=== PATIENT | female | born 1990 | race Caucasian/White ===

== ENCOUNTER 2020-01-31 10:20 | Emergency (ER) | payer MEDICAID, OTHER ==
[~2020-01-31] VITALS: Ht 162.6 cm; Wt 50.5 kg
[2020-01-31] MEDS ORDERED: IBUPROFEN 600 MG TABLET PO ONE (11:00)
[2020-01-31] MEDS ORDERED: ACETAMINOPHEN 500 MG TABLET PO ONE (11:00)
[2020-01-31 11:14] LABS: COVID AG,FIA SOURCE NASOPHARYNGEAL
[2020-01-31 11:39] LABS: INFLUENZA TYPE A NEGATIVE FOR TYPE A (NEGATIVE); INFLUENZA TYPE B NEGATIVE FOR TYPE B (NEGATIVE)
[2020-01-31 12:14] VITALS: BP 96/61
== END 2020-01-31 12:34 | disposition home or self-care (01) ==
LOC: EMS 10:27
DX: R51.9 Headache, unspecified (principal); R50.9 Fever, unspecified; Z20.828 Contact with and (suspected) exposure to other viral communicable diseases
CPT/HCPCS: 87426; 87804; 99283; U0003

== ENCOUNTER 2021-09-01 08:02 | Emergency (ER) | payer MEDICAID ==
[~2021-09-01] VITALS: Ht 162.6 cm; Wt 50.9 kg
[2021-09-01 09:24] LABS: APPEARANCE,URINE CLEAR (CLEAR); BILIRUBIN,URINE NEGATIVE (NEGATIVE); GLUCOSE, URINE (UA) NEGATIVE (NEGATIVE); KETONES,URINE NEGATIVE (NEGATIVE); LEUKOCYTE ESTERASE ,URINE LARGE (NEGATIVE); NITRATE,URINE NEGATIVE (NEGATIVE); OCCULT BLOOD,URINE TRACE (NEGATIVE); PH,URINE 6.5 (5.0-8.0); PROTEIN,URINE NEGATIVE (NEGATIVE); SPECIFIC GRAVITIY, URINE 1.002 (1.003-1.030); UROBILINOGEN,URINE <=1.0 mg/dL (<=1.0)
[2021-09-01 09:35] VITALS: BP 133/54
[2021-09-01 09:50] LABS: BACTERIA,URINE Few /HPF (None Seen); RBC,URINE 0-2 /HPF (0-2); SQUAMOUS EPITHELIAL CELL,UR Few /LPF (None Seen)
[2021-09-01] MEDS ORDERED: CEFD300C3 PO (10:22)
== END 2021-09-01 10:35 | disposition home or self-care (01) ==
LOC: EMS 08:02
DX: N39.0 Urinary tract infection, site not specified (principal)
CPT/HCPCS: 81001; 84703; 87086; 99283